=== PATIENT | male | born 1945 | race Caucasian/White ===

== ENCOUNTER → 2023-08-25 11:08 | Outpatient (REF) | payer MEDICARE, OTHER, SELFPAY ==
[2023-08-25 16:13] LABS: HDL Cholesterol 44 mg/dl; LDL Cholesterol, Calculated 58 mg/dl; Total Cholesterol 123 mg/dl (50-199); Triglyceride 106 mg/dl (10-149); Very Low Density Lipoprotein 21 mg/dl (0-30)
== END ==
LOC: HWLAB 11:08
PROVIDERS: ATTENDING PHYSICIAN Internal Medicine Cardiovascular Disease; FAMILY PHYSICIAN Internal Medicine
DX: E78.00 Pure hypercholesterolemia, unspecified (principal)
CPT/HCPCS: 36415; 80061